=== PATIENT | female | born 1980 | race Caucasian/White ===

== ENCOUNTER 2020-01-29 21:28 | Emergency (ER) | payer OTHER ==
[~2020-01-29] VITALS: Ht 160 cm; Wt 72.7 kg
[2020-01-29 21:19] VITALS: BP 118/75; PULSE 56; TEMP 97.5
[~2020-01-29 21:28] MED LIST: COZAAR100 MG PO
[2020-01-29 22:20] LABS: HIV 1/2 Antibodies Non-Reactive; HIV-1p24 Antigen Non-Reactive
[2020-01-30 15:58] LABS: HEPATITIS B SURFACE ANTIBODY 175.8 (()); HEPATITIS B SURFACE ANTIGEN Negative (Negative)
== END 2020-01-29 22:05 | disposition home or self-care (01) ==
LOC: COL.ER 21:28 → EDSTATUS 21:32 → COL.ER 22:05
PROVIDERS: Physician Assistant
DX: S61.422A Laceration with foreign body of left hand, initial encounter (principal); Z23 Encounter for immunization; W46.1XXA Contact with contaminated hypodermic needle, initial encounter
CPT/HCPCS: 87522